=== PATIENT | female | born 1960 | race African-American/Black ===

== ENCOUNTER → 2017-01-02 | Day surgery (SDC) | payer OTHER ==
[~2017-01-02] VITALS: Ht 149.9 cm; Wt 86.2 kg
[~2017-01-02] MED LIST: ADVAIR 250-501 EACH INH; AMLODIPINE BESY10 MG PO; COLACE100 MG PO; CONSTULOSE10 GM/152 PO; ENBREL50 MG/1 M1 SQ; FOLIC ACID1 MG PO; HYDROCHLOROTHIA25 M1 PO; LEXAPRO20 MG PO; METHOTREXATE 22.5 MG PO; MOBIC15 MG PO; NEURONTIN600 MG PO; PROAIR HFA8.5 GM INH; PROTONIX40 M1 PO; VITAMIN D1000 UNIT PO; XANAX 0.5 MG0.5 MG PO; ZOLPIDEM TARTRA10 MG PO
== END ==
LOC: OR 06:22 → TBA 06:23 → OR 06:23
DX: Z53.9 Procedure and treatment not carried out, unspecified reason (principal)